=== PATIENT | male | born 1970 | race Caucasian/White ===

== ENCOUNTER 2024-06-25 12:15 | Observation (INO) ==
[2024-06-25] MEDS: NOZIN NASAL SANITIZER TP ONE (08:15)
[2024-06-25] MEDS: LR 1,000 ML IV 1,000 ML IV ONE ×2 (08:25→12:51)
[2024-06-25 08:49] VITALS: BMI 37.2
[2024-06-25] MEDS: FENTANYL VIAL INJ 100 mcg ONE ×2 (09:41→09:54)
[2024-06-25] MEDS: VERSED ONE ×2 (09:41→09:54)
[2024-06-25] MEDS: NAROPIN 0.75% EPI ONE (09:41)
[2024-06-25] MEDS: PEPCID 20 MG VIAL ONE (09:57)
[2024-06-25] MEDS: ROBINUL ONE (09:57)
[2024-06-25] MEDS: REGLAN INJ 10 MG VIAL ONE (09:57)
[2024-06-25] MEDS: ZOFRAN INJ 4 MG VIAL ONE (09:57)
[2024-06-25] MEDS: DECADRON INJ ONE (10:00)
[2024-06-25] MEDS: DIPRIVAN VIAL 20 ML ONE (10:02)
[2024-06-25] MEDS: OFIRMEV IV 1000 MG VIAL 0 MG/0 ML VIAL IV ONE (10:02)
[2024-06-25] MEDS: VERSED IVP PRN (10:11)
[2024-06-25] MEDS: NS 100 ML IV 100 ML ONE (10:26)
[2024-06-25] MEDS: ANCEF VIAL 1 GRAM ONE (10:26)
[2024-06-25] MEDS: QUELICIN (OR ANECTINE) ONE (10:29)
[2024-06-25] MEDS: ZEMURON 100 MG VIAL ONE (10:29)
[2024-06-25] MEDS: PEPCID 20 MG VIAL IVP PRN (10:38)
[2024-06-25] MEDS: REGLAN INJ 10 MG VIAL IVP PRN (10:38)
[2024-06-25] MEDS: ZOFRAN INJ 4 MG VIAL IVP PRN (10:38)
[2024-06-25] MEDS: LR 1,000 ML IV 1,000 ML IV PRN (10:38)
[2024-06-25] MEDS: DECADRON INJ IVP PRN (10:44)
[2024-06-25] MEDS: FENTANYL VIAL INJ 100 mcg IVP PRN (10:44)
[2024-06-25] MEDS: DIPRIVAN VIAL 150 ML IVP PRN (10:45)
[2024-06-25] MEDS: QUELICIN (OR ANECTINE) IVP PRN (10:46)
[2024-06-25] MEDS: KETAMINE HCL IV PRN (10:48)
[2024-06-25] MEDS: ZEMURON 100 MG VIAL IVP PRN (10:52)
[2024-06-25] MEDS: MARCAINE 0.25% INJ ONE (10:56)
[2024-06-25] MEDS: OFIRMEV IV 1000 MG VIAL 1,000 MG/100 ML VIAL IV PRN (11:17)
[2024-06-25] MEDS: OFIRMEV IV 1000 MG VIAL 1,000 MG/100 ML VIAL IV ONE (11:18)
[~2024-06-25 12:15] MED LIST: BARHEMSYS INJ IVP PRN; BENADRYL INJ 50 MG VIAL IVP PRN; DILAUDID INJ IVP PRN; KETAMINE HCL ONE; PRECEDEX INJ VIAL ONE; REGLAN INJ 10 MG VIAL IVP PRN; TYLENOL 325 MG TAB PO PRN; XYLOCAINE 2 % (PLAIN) PRN; ZOFRAN INJ 4 MG VIAL IVP PRN
[2024-06-25] MEDS: PRECEDEX INJ VIAL IVP PRN (12:23)
[2024-06-25] MEDS: DILAUDID INJ ONE (12:57)
[2024-06-25] MEDS: DILAUDID INJ IVP PRN ×2 (12:58→14:20)
[2024-06-25] MEDS: BRIDION ONE (13:12)
[2024-06-25] MEDS: BRIDION IVP PRN (13:14)
[2024-06-25] MEDS: NS 1,000 ML IV 1,000 ML IV SCH (14:20)
[2024-06-25] MEDS: COLACE CAP 100 MG PO SCH (21:57)
[2024-06-26] MEDS: PERCOCET TAB 5/325 MG PO PRN (03:47)
[2024-06-26 07:18] LABS: BLOOD UREA NITROGEN 13 mg/dL (7-18); CALCIUM 8.2 mg/dL (8.5-10.1); CARBON DIOXIDE 25.9 mmol/L (21-32); CHLORIDE 103 mmol/L (98-107); COR NA(FOR HYPERGLY) 139 mmol/L (136-145); GLUCOSE 157 mg/dL (65-99); SODIUM 138 mmol/L (136-145); eGFR NON BLACK RACES > 60 (>60)
--- NOTE | 2024-06-26 08:38 | NOTE.SOAP ---
Soap Note Note for Day of Date of Exam: 06/26/24 Subjective Data Subjective Data: POD#1 TAR and peroneal debridement right lower extremity. Denies N/V/F/C/SoB. Only major complaint is pain control. Objective Data Objective Data: Right Lower Extremity Exam: Dressing taken down. Surgical incision is healing and is intact. No dehiscence noted. No signs of infection. No hematoma. Redressed with clean sterile dressing 4x4s, Webroll, Splint, JORGE. No signs or symptoms concerning for DVT or PE. Assessment Assessment: 53 year old M POD#1 TAR with Peroneal debridment, right lower extremity Plan Plan: - NWB to RLE. - Keep dressing clean, dry, and intact. - Do not change or get wet. - Has Rx for Pain medication in chart. - Has Rx for nasuea in chart. - Has Rx for Lovenox in chart, give dose today. Start @ home tomorrow. - Okay for discharge from Podiatry standpoint today. - Also dispensed Rx for crutches. Has knee scooter.
[2024-06-26] MEDS: LOVENOX INJ 40 MG SYR SC SCH (08:57)
[2024-06-26 12:24] VITALS: BP 131/76; PULSE 89; RESP 18; TEMP 98.2; O2SAT 94
[2024-06-27] MEDS ORDERED: [UNRECOGNIZED DRUG - OTHER] TOP SCH (09:00)
[2024-06-27] MEDS ORDERED: TESTOSTERONE TOP SCH (09:00)
== END 2024-06-26 12:25 | disposition home or self-care (01) ==
LOC: MED/SURG → EDUNIT# 12:15 → EDSTATUS 12:15
PROVIDERS: ADMIT Obstetrics & Gynecology Obstetrics; ATTEND Obstetrics & Gynecology Obstetrics
DX: G89.18 Other acute postprocedural pain; M76.71 Peroneal tendinitis, right leg; M12.571 Traumatic arthropathy, right ankle and foot